=== PATIENT | male | born 1970 | race African-American/Black ===

== ENCOUNTER 2021-05-08 14:26 | Emergency (ER) | payer MEDICAID, OTHER ==
[~2021-05-08] VITALS: Ht 170.2 cm; Wt 102.1 kg
[2021-05-08] MEDS ORDERED: hydro (14:35)
[2021-05-08] MEDS ORDERED: hydrochlorothiazide PO (14:35)
--- NOTE | 2021-05-08 14:42 | NUR ---
PT IS IN ROOM #1B. DR CALLAHAN EVALUATED THE PT.
[2021-05-08] MEDS ORDERED: HYDROMORPHONE 1 MG/1 ML DISP.SYRIN IV ONE (14:45)
[2021-05-08] MEDS ORDERED: ONDANSETRON 4 MG/2 ML VIAL IV ONE (14:45)
[2021-05-08] MEDS ORDERED: HYDROMORPHONE 1 MG/1 ML DISP.SYRIN ONE (14:52)
[2021-05-08] MEDS ORDERED: ONDANSETRON 4 MG/2 ML VIAL ONE (14:53)
[2021-05-08] MEDS ORDERED: IV NORMAL SALINE 1000 ML BAG IV ONE (15:00)
[2021-05-08 15:36] LABS: HEMATOCRIT 50.7 % (36.7-47.1); MEAN CORPUSCULAR HEMOGLOBIN 29.1 uug (23.8-33.4); MEAN CORPUSCULAR VOLUME 89.1 fL (73.0-96.2); PLATELET COUNT (AUTO) 249 K/uL (152-348)
[2021-05-08 15:40] LABS: CREATININE 0.9 mg/dL (0.6-1.3); POTASSIUM 3.9 mmol/L (3.5-5.1)
[2021-05-08 15:46] LABS: BILIRUBIN,DIRECT 0.1 mg/dL (0.0-0.2); BILIRUBIN,TOTAL 0.2 mg/dL (0.2-1.0); TOTAL PROTEIN, SERUM 6.8 g/dL (6.4-8.2)
[2021-05-08] MEDS ORDERED: SWABABLE VALVE TRANSFER SET EA MC ONE (16:04)
[2021-05-08] MEDS ORDERED: IV NORMAL SALINE 250 ML IV ONE (16:04)
[2021-05-08] MEDS ORDERED: IOHEXOL 300MG/ML 100 ML INFUS..BTL ONE (16:04)
[2021-05-08] MEDS ORDERED: HALOPERIDOL LACTATE 5 MG/1 ML VIAL IV ONE (17:00)
[2021-05-08] MEDS ORDERED: HALOPERIDOL LACTATE 5 MG/1 ML VIAL ONE (17:14)
[2021-05-08] MEDS ORDERED: ONDA4TAB5 PO (17:15)
[2021-05-08 17:18] LABS: *BILIRUBIN,URIN NEGATIVE (NEGATIVE); *BLOOD, URINE NEGATIVE (NEGATIVE); *CLARITY,URINE CLEAR (CLEAR); *COLOR,URINE YELLOW (YELLOW); *KETONES,URINE NEGATIVE (NEGATIVE); *UROBILINOGEN,URINE 0.2 E.U./dl (NORMAL); LEUKOCYTE ESTERASE ,URINE NEGATIVE (NEGATIVE); NITRITE, URINE NEGATIVE (NEGATIVE); UGLUCOSE NEGATIVE (NEGATIVE)
--- NOTE | 2021-05-08 18:16 | NUR ---
PT WAS D/C'd TO HOME. D/C INSTRUCTIONS GIVEN TO THE PT BY DR CALLAHAN.
[2021-05-08 18:18] VITALS: BP 133/88
== END 2021-05-08 18:19 | disposition home or self-care (01) ==
LOC: ER 14:26
DX: R11.15 Cyclical vomiting syndrome unrelated to migraine (principal); K57.90 Diverticulosis of intestine, part unspecified, without perforation or abscess without bleeding; K42.9 Umbilical hernia without obstruction or gangrene; K21.9 Gastro-esophageal reflux disease without esophagitis; I10 Essential (primary) hypertension
CPT/HCPCS: 36415; 71045; 74177; 80048; 80076; 81003; 83690; 84484; 85025; 93005; 96361; 96374; 96375; 99285; J1170; J2405; Q9967; 70030-TC; A4663; J1630; J7030; J7050

== ENCOUNTER 2021-09-11 13:05 | Emergency (ER) | payer OTHER ==
[~2021-09-11] VITALS: Ht 170.2 cm; Wt 102.1 kg
[~2021-09-11 13:05] MED LIST: ONDA4TAB5 PO; hydrochlorothiazide PO
[2021-09-11] MEDS ORDERED: IV NORMAL SALINE 1000 ML BAG IV ONE (13:15)
[2021-09-11] MEDS ORDERED: ONDANSETRON 4 MG/2 ML VIAL IV ONE (13:15)
[2021-09-11] MEDS ORDERED: PANTOPRAZOLE SODIUM 40 MG VIAL IV ONE (13:15)
--- NOTE | 2021-09-11 13:15 | NUR ---
Recived pt 51 yrs male from home c/o abdominal pain 05/09 with n/v for 2 days
[2021-09-11 13:44] LABS: CREATININE 0.9 mg/dL (0.6-1.3); POTASSIUM 4.2 mmol/L (3.5-5.1)
[2021-09-11 13:50] LABS: BILIRUBIN,DIRECT 0.1 mg/dL (0.0-0.2); BILIRUBIN,TOTAL 0.4 mg/dL (0.2-1.0); TOTAL PROTEIN, SERUM 7.9 g/dL (6.4-8.2)
[2021-09-11 14:01] LABS: HEMATOCRIT 55.6 % (36.7-47.1); MEAN CORPUSCULAR HEMOGLOBIN 29.9 uug (23.8-33.4); MEAN CORPUSCULAR VOLUME 88.9 fL (73.0-96.2); PLATELET COUNT (AUTO) 199 K/uL (152-348)
[2021-09-11] MEDS ORDERED: ONDANSETRON 4 MG/2 ML VIAL ONE ×2 (14:04→14:13)
[2021-09-11] MEDS ORDERED: PANTOPRAZOLE SODIUM 40 MG VIAL ONE (14:04)
[2021-09-11] MEDS ORDERED: KETOROLAC TROMETHAMINE 30 MG INJ IVP ONE (14:15)
[2021-09-11] MEDS ORDERED: KETOROLAC TROMETHAMINE 30 MG INJ ONE (14:18)
[2021-09-11] MEDS ORDERED: MORPHINE SULFATE 4 MG/1 ML DISP.SYRIN IV ONE (14:30)
[2021-09-11] MEDS ORDERED: METOCLOPRAMIDE HCL 10 MG/2 ML VIAL IV ONE ×2 (14:30→19:45)
[2021-09-11] MEDS ORDERED: diphenhydrAMINE 50 MG/1 ML VIAL IV ONE (14:30)
[2021-09-11] MEDS ORDERED: MORPHINE SULFATE 4 MG/1 ML DISP.SYRIN ONE (14:34)
[2021-09-11] MEDS ORDERED: diphenhydrAMINE 50 MG/1 ML VIAL ONE (14:34)
[2021-09-11] MEDS ORDERED: METOCLOPRAMIDE HCL 10 MG/2 ML VIAL ONE ×2 (14:34→19:52)
--- NOTE | 2021-09-11 14:35 | NUR ---
c/o abdominl pain 06/[address] joe order was given morphin banadly 50mg and reglan 10 ivp given
[2021-09-11] MEDS ORDERED: LABETALOL HCL 100 MG/20 ML VIAL IV ONE (14:45)
[2021-09-11] MEDS ORDERED: IV NORMAL SALINE 250 ML IV ONE (15:01)
[2021-09-11] MEDS ORDERED: SWABABLE VALVE TRANSFER SET EA MC ONE (15:01)
[2021-09-11] MEDS ORDERED: IOHEXOL 300MG/ML 100 ML INFUS..BTL ONE (15:01)
[2021-09-11] MEDS ORDERED: LABETALOL HCL 100 MG/20 ML VIAL ONE (15:22)
--- NOTE | 2021-09-11 15:31 | NUR ---
BP 183/120 mmhg trandat 10mg ivp given contenue and closly moniton pt pain releaved after morphin was given
--- NOTE | 2021-09-11 16:45 | NUR ---
UA SENT TO LAB contenue moniter bp 177/114mmhg
[2021-09-11 16:50] LABS: *BILIRUBIN,URIN NEGATIVE (NEGATIVE); *BLOOD, URINE TRACE INTACT (NEGATIVE); *CLARITY,URINE CLEAR (CLEAR); *COLOR,URINE YELLOW (YELLOW); *KETONES,URINE NEGATIVE (NEGATIVE); *UROBILINOGEN,URINE 0.2 E.U./dl (NORMAL); BACTERIA,URINE NONE SEEN /HPF (NONE SEEN); LEUKOCYTE ESTERASE ,URINE NEGATIVE (NEGATIVE); NITRITE, URINE NEGATIVE (NEGATIVE); RBC,URINE 0-3 /HPF (0-3); UGLUCOSE NEGATIVE (NEGATIVE); WBC,URINE 0-3 /HPF (0-3)
--- NOTE | 2021-09-11 17:43 | NUR ---
pt asleepy an abdominale no n/v at this time
[2021-09-11] MEDS ORDERED: OMEP40CA21 PO (17:52)
[2021-09-11] MEDS ORDERED: METO-295 PO (17:52)
--- NOTE | 2021-09-11 19:12 | NUR ---
HAND OFF TO VASILE villegas plan to d/c home
--- NOTE | 2021-09-11 19:40 | NUR ---
PATIENT NAUSEA, REQUESTING MEDICATION FOR NAUSEA. DR MULLINS PLACED ORDERS.
--- NOTE | 2021-09-11 20:21 | NUR ---
Patient discharged to home in stable condition. Written and verbal after care instructions given. Patient verbalizes understanding of instructions. Stressed follow up or return to ER for worsening s/s. Patient out of ER with steady gait, no acute signs of distress, VSS, all belongings taken, IV site discontinued, provided with a taxi voucher, to be driven home via taxi.
[2021-09-11 20:23] VITALS: BP 145/50
== END 2021-09-11 20:24 | disposition home or self-care (01) ==
LOC: ER 13:05
DX: R10.12 Left upper quadrant pain (principal); Z82.49 Family history of ischemic heart disease and other diseases of the circulatory system; K42.9 Umbilical hernia without obstruction or gangrene; K57.30 Diverticulosis of large intestine without perforation or abscess without bleeding; J98.11 Atelectasis; I45.2 Bifascicular block; I10 Essential (primary) hypertension; K21.9 Gastro-esophageal reflux disease without esophagitis
CPT/HCPCS: 36415; 74177; 80048; 80076; 81001; 83690; 85025; 93005; 96374; 96375; 96376; 99285; C9113; J1200; J1885; J2270; J2405 ×2; J2765 ×2; J3490; Q9967; A4663; J7050

== ENCOUNTER 2022-03-23 18:00 | Emergency (ER) | payer OTHER ==
[~2022-03-23] VITALS: Ht 172.7 cm; Wt 99.8 kg
[~2022-03-23 18:00] MED LIST changes: +METO-295 PO; +OMEP40CA21 PO
[2022-03-23] MEDS ORDERED: ONDANSETRON 4 MG/2 ML VIAL IV ONE (18:15)
[2022-03-23] MEDS ORDERED: MORPHINE SULFATE 2 MG/1 ML DISP.SYRIN IV ONE (18:15)
[2022-03-23] MEDS ORDERED: IV NORMAL SALINE 100 ML BAG IV ONE (18:15)
[2022-03-23] MEDS ORDERED: SWABABLE VALVE TRANSFER SET EA MC ONE (18:17)
[2022-03-23] MEDS ORDERED: IV NORMAL SALINE 250 ML IV ONE (18:17)
[2022-03-23] MEDS ORDERED: IOHEXOL 300MG/ML 100 ML INFUS..BTL ONE (18:17)
[2022-03-23] MEDS ORDERED: MORPHINE SULFATE 4 MG/1 ML DISP.SYRIN ONE (18:17)
[2022-03-23] MEDS ORDERED: ONDANSETRON 4 MG/2 ML VIAL ONE (18:18)
--- NOTE | 2022-03-23 18:40 | NUR ---
Pt to CT via [facility] zavala noted.
[2022-03-23 18:44] LABS: HEMATOCRIT 55.6 % (36.7-47.1); MEAN CORPUSCULAR HEMOGLOBIN 29.9 uug (23.8-33.4); MEAN CORPUSCULAR VOLUME 88.2 fL (73.0-96.2); PLATELET COUNT (AUTO) 262 K/uL (152-348)
[2022-03-23 18:59] LABS: BILIRUBIN,TOTAL 0.3 mg/dL (0.2-1.0); CREATININE 0.9 mg/dL (0.6-1.3); TOTAL PROTEIN, SERUM 7.8 g/dL (6.4-8.2)
[2022-03-23] MEDS ORDERED: HYDROMORPHONE 1 MG/1 ML DISP.SYRIN ONE (19:13)
[2022-03-23] MEDS ORDERED: IV NORMAL SALINE 500 ML BAG IV ONE (19:15)
[2022-03-23] MEDS ORDERED: HYDROMORPHONE 1 MG/1 ML DISP.SYRIN IV ONE (19:15)
[2022-03-23 20:02] LABS: CREATININE 1.1 mg/dL (0.6-1.3); POTASSIUM 4.3 mmol/L (3.5-5.1)
[2022-03-23] MEDS ORDERED: PANTOPRAZOLE SODIUM 40 MG VIAL ONE (22:37)
[2022-03-23] MEDS ORDERED: ONDA4TAB11 PO (22:38)
[2022-03-23] MEDS ORDERED: PANTOPRAZOLE SODIUM IV 40 MG in IV DEXTROSE 5% 100 ML IV ONE (22:45)
--- NOTE | 2022-03-23 22:46 | NUR ---
Patient discharged to home in stable condition. Written and verbal after care instructions given. Patient verbalizes understanding of instructions. Stressed follow up or return to ER for worsening s/s. Patient is a/ox4, not in distress. able to walk with steady gait.
[2022-03-24 00:04] VITALS: BP 128/64
== END 2022-03-23 22:46 | disposition home or self-care (01) ==
LOC: ER 18:01
DX: R10.32 Left lower quadrant pain (principal); I10 Essential (primary) hypertension; K21.9 Gastro-esophageal reflux disease without esophagitis; Z79.899 Other long term (current) drug therapy
CPT/HCPCS: 36415; 73502; 74177; 80048; 80053; 83690; 85025; 93005; 96361; 96374; 96375; 96376; 99285; C9113; J1170; J2270; J2405; Q9967; A4663